=== PATIENT | male | born 1970 | race Caucasian/White ===

== ENCOUNTER → 2017-12-21 | Outpatient (CLI) | payer OTHER ==
[~2017-12-21] MED LIST: AMLO-110 PO; EFF75 PO; MELO7.5T5 PO
[2017-12-21 16:42] LABS: ALBUMIN 4.6 gm/dl (3.4-5.0); ALT/SGPT 78 U/L (12-78); AST/SGOT 42 U/L (15-37); BLOOD UREA NITROGEN 24 mg/dl (7-18); CALCIUM 9.4 mg/dl (8.5-10.1); CARBON DIOXIDE 29 mmol/L (21-32); CREATININE 1.02 mg/dl (0.60-1.40); GLUCOSE 87 mg/dl (70-99); POTASSIUM 4.2 mmol/L (3.5-5.1); SODIUM 135 mmol/L (136-145)
[2017-12-21 16:53] LABS: ALKALINE PHOSPHATASE 73 U/L (45-117); TOTAL PROTEIN 7.9 gm/dl (6.4-8.2)
== END ==
LOC: C.LABBFT 15:17
PROVIDERS: ATTEND Internal Medicine
DX: F43.20 Adjustment disorder, unspecified (principal); Z00.00 Encounter for general adult medical examination without abnormal findings; M54.5 Low back pain; M43.06 Spondylolysis, lumbar region; R41.840 Attention and concentration deficit; I10 Essential (primary) hypertension